=== PATIENT | male | born 1985 | race African-American/Black ===

== ENCOUNTER 2017-09-04 09:39 | Emergency (ER) | payer MEDICAID ==
[~2017-09-04] VITALS: Ht 185.4 cm; Wt 78.0 kg
[2017-09-04] MEDS ORDERED: BACITRACIN ZINC OINT UDPKT TOP ONE (15:00)
[2017-09-04] MEDS ORDERED: IBUPROFEN 800MG TABLET PO ONE (16:30)
[2017-09-04 16:57] VITALS: BP 128/84
== END 2017-09-04 16:58 | disposition home or self-care (01) ==
LOC: ER 12:23
DX: L02.511 Cutaneous abscess of right hand (principal); F17.200 Nicotine dependence, unspecified, uncomplicated; F12.10 Cannabis abuse, uncomplicated
CPT/HCPCS: 10060; 99283; Z7610